=== PATIENT | male | born 1970 | race Caucasian/White ===

== ENCOUNTER 2021-03-15 16:34 | Emergency (ER) | payer OTHER ==
[2021-03-15 20:55] LABS: HEMOGLOBIN 11.3 gm/dl (14.0-17.5); RED BLOOD COUNT 5.04 M/UL (4.20-5.50); WHITE BLOOD COUNT 3.7 K/UL (4.5-11.0)
[2021-03-15 21:14] LABS: BUN/CREATININE RATIO 11 (0-10)
[2021-03-15] MEDS ORDERED: CONSTULOSE10 GM/15 M PO (22:40)
== END 2021-03-15 22:50 | disposition home or self-care (01) ==
LOC: ER1 16:34
PROVIDERS: Preventive Medicine Occupational Medicine
DX: K59.00 Constipation, unspecified (principal); Z20.822 Contact with and (suspected) exposure to COVID-19
CPT/HCPCS: 80053; 83690; 85025; 86140; 96374; 99284; J2405; J7030; Q9967; U0002